=== PATIENT | male | born 1965 | race Native Hawaiian/Other Pacific Islander ===

== ENCOUNTER 2016-11-02 09:12 | Outpatient (CLI) | payer OTHER ==
[~2016-11-02 09:12] MED LIST: CIPRO500 MG PO; ONDA4TAB3; ONDA4TAB3 PO
== END 2016-11-02 10:45 | disposition home or self-care (01) ==
LOC: US 09:12
DX: N63 Unspecified lump in breast (principal)

== ENCOUNTER 2016-11-03 09:24 | Outpatient (CLI) | payer OTHER | END 2016-11-03 19:05 | disposition home or self-care (01) | LOC: MAMMO 09:24 | DX: N63 Unspecified lump in breast (principal) | CPT/HCPCS: G0204-TC ==

== ENCOUNTER 2018-10-20 22:25 | Emergency (ER) | payer OTHER ==
[~2018-10-20] VITALS: Ht 170.2 cm; Wt 81.6 kg
[2018-10-20] MEDS ORDERED: B121000 MCG PO (22:59)
[2018-10-20] MEDS ORDERED: TEST200I2 IM (22:59)
[2018-10-20] MEDS ORDERED: UNKNOWN BP MED PO (23:00)
[2018-10-20 23:20] VITALS: BP 160/93; TEMP 97.5
== END 2018-10-20 23:29 | disposition home or self-care (01) ==
LOC: ED 22:25
DX: S80.861A Insect bite (nonvenomous), right lower leg, initial encounter (principal); S70.361A Insect bite (nonvenomous), right thigh, initial encounter; W57.XXXA Bitten or stung by nonvenomous insect and other nonvenomous arthropods, initial encounter
CPT/HCPCS: 96372; 99283; J1885; J2930

== ENCOUNTER 2020-02-15 17:58 | Emergency (ER) | payer OTHER ==
[~2020-02-15] VITALS: Ht 170.2 cm; Wt 99.8 kg
[~2020-02-15 17:58] MED LIST changes: +B121000 MCG PO; +TEST200I2 IM; +UNKNOWN BP MED PO
[2020-02-15 18:43] VITALS: BP 168/72; TEMP 98.7
== END 2020-02-15 18:43 | disposition home or self-care (01) ==
LOC: ED 17:58
DX: I16.0 Hypertensive urgency (principal)
CPT/HCPCS: 99283

== ENCOUNTER 2020-05-28 22:15 | Emergency (ER) | payer OTHER ==
[~2020-05-28] VITALS: Ht 167.6 cm; Wt 108.0 kg
[2020-05-28 22:15] VITALS: TEMP 97.9
[2020-05-28 23:50] VITALS: BP 156/95
== END 2020-05-28 23:50 | disposition home or self-care (01) ==
LOC: ED 22:28
DX: M62.838 Other muscle spasm (principal); M54.10 Radiculopathy, site unspecified
CPT/HCPCS: 36415; 96372; 99283; J1885